=== PATIENT | female | born 1985 | race African-American/Black ===

== ENCOUNTER 2020-10-24 21:33 | Emergency (ER) | payer MEDICAID ==
[~2020-10-24] VITALS: Ht 167.6 cm; Wt 100.0 kg
[~2020-10-24 21:33] MED LIST: FERR-63 PO; IBUP-779 PO; MULT-783 PO; NORE0.358 PO
[2020-10-24 21:49] VITALS: BP 124/75
== END 2020-10-24 23:30 | disposition left against medical advice (07) ==
LOC: ER 21:33
DX: R51.9 Headache, unspecified (principal); Z53.21 Procedure and treatment not carried out due to patient leaving prior to being seen by health care provider

== ENCOUNTER 2020-10-27 14:08 | Inpatient (IN) | payer MEDICAID ==
[~2020-10-27] VITALS: Ht 167.6 cm; Wt 106.0 kg
[2020-10-27] MEDS ORDERED: ACETAMINOPHEN 325MG TABLET PO STA (17:16)
[2020-10-27] MEDS ORDERED: SODIUM CHLORIDE 0.9% 1,000 ML IV ONE (17:30)
[2020-10-27] MEDS ORDERED: DIPHENHYDRAMINE 50MG/ML VIAL IV ONE (17:30)
[2020-10-27] MEDS ORDERED: METOCLOPRAMIDE HCL 10MG/2ML VIAL IV ONE (17:30)
[2020-10-27 17:52] LABS: BASOPHILS % 0.3 % (0.0-2.0); HEMATOCRIT. 38.6 % (36.0-48.0); HEMOGLOBIN. 12.8 g/dL (12.0-16.0); LYMPHOCYTES % 20.2 % (20.0-50.0); MEAN CORPUSCULAR HEMOGLOBIN 27.2 pg (28.0-32.0); MEAN CORPUSCULAR VOLUME 82.1 fL (81.0-99.0); MONOCYTES % 9.4 % (2.0-8.0); NEUTROPHILS % 70.1 % (40.0-76.0); PLATELET 189 x1000/uL (130-400); RED BLOOD CELL COUNT 4.71 mill/uL (4.2-5.4); RED CELL DISTRIBUTION WIDTH 14.4 % (11.6-14.6)
[2020-10-27 17:55] LABS: CHLORIDE 102 mEq/L (98-107)
[2020-10-27 18:06] LABS: INR 1.1; PROTHROMBIN TIME 11.7 sec (9.6-11.0)
[2020-10-27 18:10] LABS: HCG SCREEN NEGATIVE
[2020-10-27] MEDS ORDERED: LIDOCAINE HCL/PF 1% 10 MG/ML 5ML VIAL INFIL ONE (18:45)
[2020-10-27] MEDS ORDERED: VANCOMYCIN 1 G PREMIX 200 ML IV ONE (19:30)
[2020-10-27] MEDS ORDERED: CEFTRIAXONE 2 G PREMIX 50 ML IV ONE (19:30)
[2020-10-27 20:40] LABS: GLUCOSE CSF 50 mg/dL (41-75)
[2020-10-27 23:35] VITALS: BP 120/73
== END 2020-10-27 23:54 | disposition left against medical advice (07) | DRG 50 ==
LOC: ER 14:08 → EDBEDREQTM 20:08 → EDBEDREQ 20:08 → MICUSO 20:28 → 7EST 23:06
PROVIDERS: ADMIT Internal Medicine; ATTEND Internal Medicine
PROC: 009U3ZZ Drainage of Spinal Canal, Percutaneous Approach (ICD-10-PCS; principal; 2020-10-27)
DX: G03.9 Meningitis, unspecified (principal); E86.0 Dehydration; F17.200 Nicotine dependence, unspecified, uncomplicated; Z20.822 Contact with and (suspected) exposure to COVID-19; Z53.29 Procedure and treatment not carried out because of patient's decision for other reasons; Z98.891 History of uterine scar from previous surgery; Z79.899 Other long term (current) drug therapy
CPT/HCPCS: 36415; 71045; 80053; 82728; 82945; 83605; 84145; 84157; 84484; 84703; 85025; 85384; 86140; 87070; 87426; 93005; 99291; J0696; J1200; J2765; J3370; J3490; J7030

== ENCOUNTER 2020-11-22 21:12 | Emergency (ER) | payer MEDICAID ==
[~2020-11-22] VITALS: Ht 162.6 cm; Wt 106.0 kg
[2020-11-22] MEDS ORDERED: KETOROLAC 30MG/ML VIAL IM ONE (23:30)
[2020-11-22] MEDS ORDERED: NAPR-1176 MT (23:33)
[2020-11-22] MEDS ORDERED: CYCL10TA7 MT (23:33)
[2020-11-23 00:07] VITALS: BP 125/78
== END 2020-11-23 00:09 | disposition home or self-care (01) ==
LOC: ER 21:12
DX: M25.512 Pain in left shoulder (principal); Z98.890 Other specified postprocedural states
CPT/HCPCS: 96372; 99283; J1885